=== PATIENT | female | born 1990 ===

== ENCOUNTER → 2020-09-11 | Day surgery (SDC) | payer OTHER ==
[~2020-09-11] MED LIST: ACETAMINOPHEN-1 EAC2 PO; KETO10TA2 PO; VITAMIN C100 MG PO
== END | disposition home or self-care (01) ==
LOC: ADM 09-08 07:30 → CIR.AMB 07:30
PROVIDERS: ATTEND Obstetrics & Gynecology
DX: Z30.2 Encounter for sterilization (principal); Z20.822 Contact with and (suspected) exposure to COVID-19